=== PATIENT | male | born 1990 | race Caucasian/White ===

== ENCOUNTER 2021-08-25 14:27 | Emergency (ER) | payer BC, OTHER ==
[2021-08-25 16:19] LABS: HEMOGLOBIN 11.2 gm/dl (14.0-17.5); RED BLOOD COUNT 3.44 M/UL (4.20-5.50); WHITE BLOOD COUNT 11.4 K/UL (4.5-11.0)
[2021-08-25 16:53] LABS: BUN/CREATININE RATIO 15 (0-10)
[2021-08-25] MEDS ORDERED: ELIQUIS5 MG PO (17:41)
== END 2021-08-25 17:55 | disposition home or self-care (01) ==
LOC: ER1 14:27
PROVIDERS: Physician Assistant Medical
DX: I82.431 Acute embolism and thrombosis of right popliteal vein (principal); I82.441 Acute embolism and thrombosis of right tibial vein; F17.210 Nicotine dependence, cigarettes, uncomplicated
CPT/HCPCS: 80053; 85025; 85610; 93971; 99284